=== PATIENT | male | born 1970 | race Caucasian/White ===

== ENCOUNTER → 2022-01-23 | Outpatient (CLI) | payer OTHER ==
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
== END | disposition home or self-care (01) ==
LOC: RADCTMAIN 14:47
PROVIDERS: ATTEND Nurse Practitioner Adult Health
DX: M54.12 Radiculopathy, cervical region (principal)
CPT/HCPCS: 72125

== ENCOUNTER 2022-09-02 15:14 | Emergency (ER) | payer OTHER ==
[2022-09-02 15:35] VITALS: BP 134/86; PULSE 103; RESP 20; TEMP 98.6
--- NOTE | 2022-09-02 16:36 | US ---
EXAMINATION TYPE: US venous doppler duplex LE RT DATE OF EXAM: 09/02/2022 4:07 PM COMPARISON: NONE CLINICAL HISTORY: 52-year-old male Pain. Red, hot leg, no h/o DVT SIDE PERFORMED: Right TECHNIQUE: The lower extremity deep venous system is examined utilizing real time linear array sonog gabi with graded compression, doppler sonography and color-flow sonography. FINDINGS: VESSELS IMAGED: Common Femoral Vein Deep Femoral Vein Greater Saphenous Vein * Femoral Vein Popliteal Vein Small Saphenous Vein * Proximal Calf Veins Posterior tibial veins (* superficial vessels) Right Leg: Negative for DVT IMPRESSION: No evidence for DVT within the right lower extremity.
[2022-09-02] MEDS ORDERED: HYDROmorphone 0.5 MG/0.5 ML SYRINGE IVP STA (17:32)
[2022-09-02] MEDS ORDERED: ONDANSETRON 4 MG/2 ML VIAL IVP STA (17:32)
[2022-09-02] MEDS ORDERED: SODIUM CHLORIDE 0.9% 2,000 ML IV STA (17:32)
[2022-09-02 17:50] LABS: Basophils % (A) 0 %; Eosinophils # (A) 0.1 k/uL (0-0.7); Eosinophils % (A) 0 %; HCT 37.3 % (39.0-53.0); HGB 13.7 gm/dL (13.0-17.5); Hyperchromasia Slight; Lymphocytes # (A) 1.5 k/uL (1.0-4.8); Lymphocytes % (A) 14 %; MCH 31.6 pg (25.0-35.0); MCHC 36.8 g/dL (31.0-37.0); MCV 85.9 fL (80.0-100.0); Mean Platelet Volume 8.1; Monocytes # (A) 0.7 k/uL (0-1.0); Monocytes % (A) 6 %; Neutrophils # (A) 8.7 k/uL (1.3-7.7); Neutrophils % (A) 77 %; Platelet Count 171 k/uL (150-450); Poikilocytosis Slight; RBC 4.34 m/uL (4.30-5.90); RDW 13.5 % (11.5-15.5); WBC 11.3 k/uL (3.8-10.6)
[2022-09-02 18:09] LABS: ALT 24 U/L (4-49); AST 24 U/L (17-59); African American GFR (CKD) >90 (>60 ml/min/1.73 sqM); Albumin 4.6 g/dL (3.5-5.0); Alkaline Phosphatase 83 U/L (38-126); Anion Gap 17 mmol/L; Blood Urea Nitrogen 18 mg/dL (9-20); Calcium 9.1 mg/dL (8.4-10.2); Carbon Dioxide 22 mmol/L (22-30); Chloride 94 mmol/L (98-107); Glucose 141 mg/dL (74-99); Non-African American GFR(CKD) >90 (>60 ml/min/1.73 sqM); Potassium 3.9 mmol/L (3.5-5.1); Sodium 133 mmol/L (137-145); Total Bilirubin 1.3 mg/dL (0.2-1.3); Total Protein 7.3 g/dL (6.3-8.2)
[2022-09-02] MEDS ORDERED: CLINDAMYCIN 150 MG CAP PO STA (19:12)
--- NOTE | 2022-09-02 19:12 | ED ---
Extremity Problem HPI - General Chief complaint: Extremity Problem,Nontraumatic Stated complaint: Sore on R leg-sent by PCP Time Seen by Provider: 09/02/22 16:13 Source: patient Mode of arrival: ambulatory Limitations: no limitations - History of Present Illness Initial comments: Patient is a 52-year-old male with a past medical history of diabetes mellitus who presents to the emergency department for evaluation of right lower extremity redness. Patient states symptoms started 2 days ago which included redness and swelling of his lower leg. States the redness is traveling up his lower leg and is causing pain. Patient was evaluated by his primary care provider who sent him to the emergency department for possible cellulitis versus DVT. Patient denies history of cellulitis and MRSA. Does not recall any bites or scratches on the leg. Denies history of DVT and PE. Denies tobacco hormone use. Denies recent airplane travel and long car travel. Patient given Motrin for pain with some relief. Denies fever, chills, upper respiratory symptoms. Does admit to nausea without vomiting. - Related Data Previous Rx's Medication Instructions Recorded Clindamycin [Cleocin] 450 mg PO Q8H #15 cap 09/02/22 Ketorolac [Toradol] 10 mg PO Q8HR PRN #15 tab 09/02/22 Ondansetron Odt [Zofran Odt] 4 mg PO Q8HR PRN #10 tab 09/02/22 Allergies Allergy/AdvReac Type Severity Reaction Status Date / Time Penicillins Allergy Rash/Hives Verified 09/02/22 15:35 Review of Systems ROS Statement: Those systems with pertinent positive or pertinent negative responses have been documented in the HPI. ROS Other: All systems not noted in ROS Statement are negative. Past Medical History Past Medical History: Diabetes Mellitus History of Any Multi-Drug Resistant Organisms: None Reported Past Surgical History: Joint Replacement, Orthopedic Surgery Additional Past Surgical History / Comment(s): Neck fusion Past Psychological History: No Psychological Hx Reported Smoking Status: Former smoker Past Alcohol Use History: Occasional Past Drug Use History: None Reported General Exam Limitations: no limitations General appearance: alert, in no apparent distress Head exam: Present: atraumatic, normocephalic, normal inspection Respiratory exam: Present: normal lung sounds bilaterally. Absent: respiratory distress, wheezes, rales, rhonchi, stridor Cardiovascular Exam: Present: regular rate, normal rhythm, normal heart sounds. Absent: systolic murmur, diastolic murmur, rubs, gallop, clicks GI/Abdominal exam: Present: soft, normal bowel sounds. Absent: distended, tenderness, guarding, rebound, rigid Extremities exam: Present: full ROM, normal capillary refill, other (Erythematous, swelling, warmth of right lower extremity starting at the distal lower leg just proximal to the ankle traveling upwards anteriorly to the proximal 1/3 of the lower leg). Absent: calf tenderness Neurological exam: Present: alert, oriented X3, CN II-XII intact Psychiatric exam: Present: normal affect, normal mood Skin exam: Present: warm, dry, intact, normal color. Absent: rash Course Vital Signs 09/02/22 15:31 Temperature 98.6 F Pulse Rate 103 H Respiratory 20 Rate Blood Pressure 134/86 O2 Sat by Pulse 99 Oximetry Medical Decision Making - Medical Decision Making This is a 52-year-old male presenting for evaluation of right lower leg redness. Physical exam reveals cellulitis of right lower extremity. Right lower extremity ultrasound with Doppler is negative for DVT. Laboratory studies obtained. There is mild leukocytosis of 11.3. Other laboratory studies are relatively unremarkable. Results discussed with patient. Patient afebrile, no tachycardia, no signs of systemic infection. He will be discharged with Keflex. First dose given in the emergency department. Return parameters discussed. He should follow up with primary care provider. Dr. Gordillo is my attending. - Lab Data Result diagrams: 09/02/22 17:34 09/02/22 17:34 Lab Results 09/02/22 09/02/22 09/02/22 Range/Units 17:34 17:34 17:34 WBC 11.3 H (3.8-10.6) k/uL RBC 4.34 (4.30-5.90) m/uL Hgb 13.7 (13.0-17.5) gm/dL Hct 37.3 L (39.0-53.0) % MCV 85.9 (80.0-100.0) fL MCH 31.6 (25.0-35.0) pg MCHC 36.8 (31.0-37.0) g/dL RDW 13.5 (11.5-15.5) % Plt Count 171 (150-450) k/uL MPV 8.1 Neutrophils % 77 % Lymphocytes % 14 % Monocytes % 6 % Eosinophils % 0 % Basophils % 0 % Neutrophils # 8.7 H (1.3-7.7) k/uL Lymphocytes # 1.5 (1.0-4.8) k/uL Monocytes # 0.7 (0-1.0) k/uL Eosinophils # 0.1 (0-0.7) k/uL Basophils # 0.0 (0-0.2) k/uL Hyperchromasia Slight Poikilocytosis Slight Sodium 133 L (137-145) mmol/L Potassium 3.9 (3.5-5.1) mmol/L Chloride 94 L (98-107) mmol/L Carbon Dioxide 22 (22-30) mmol/L Anion Gap 17 mmol/L BUN 18 (9-20) mg/dL Creatinine 0.76 (0.66-1.25) mg/dL Est GFR (CKD-EPI)AfAm >90 (>60 ml/min/1.73 sqM) Est GFR (CKD-EPI)NonAf >90 (>60 ml/min/1.73 sqM) Glucose 141 H (74-99) mg/dL Plasma Lactic Acid Lv 1.0 (0.7-2.0) mmol/L Calcium 9.1 (8.4-10.2) mg/dL Total Bilirubin 1.3 (0.2-1.3) mg/dL AST 24 (17-59) U/L ALT 24 (4-49) U/L Alkaline Phosphatase 83 (38-126) U/L Total Protein 7.3 (6.3-8.2) g/dL Albumin 4.6 (3.5-5.0) g/dL Coronavirus (PCR) (Not Detectd) Influenza Type A RNA (Not Detectd) Influenza Type B (PCR) (Not Detectd) 09/02/22 09/02/22 Range/Units 17:34 17:34 WBC (3.8-10.6) k/uL RBC (4.30-5.90) m/uL Hgb (13.0-17.5) gm/dL Hct (39.0-53.0) % MCV (80.0-100.0) fL MCH (25.0-35.0) pg MCHC (31.0-37.0) g/dL RDW (11.5-15.5) % Plt Count (150-450) k/uL MPV Neutrophils % % Lymphocytes % % Monocytes % % Eosinophils % % Basophils % % Neutrophils # (1.3-7.7) k/uL Lymphocytes # (1.0-4.8) k/uL Monocytes # (0-1.0) k/uL Eosinophils # (0-0.7) k/uL Basophils # (0-0.2) k/uL Hyperchromasia Poikilocytosis Sodium (137-145) mmol/L Potassium (3.5-5.1) mmol/L Chloride (98-107) mmol/L Carbon Dioxide (22-30) mmol/L Anion Gap mmol/L BUN (9-20) mg/dL Creatinine (0.66-1.25) mg/dL Est GFR (CKD-EPI)AfAm (>60 ml/min/1.73 sqM) Est GFR (CKD-EPI)NonAf (>60 ml/min/1.73 sqM) Glucose (74-99) mg/dL Plasma Lactic Acid Lv (0.7-2.0) mmol/L Calcium (8.4-10.2) mg/dL Total Bilirubin (0.2-1.3) mg/dL AST (17-59) U/L ALT (4-49) U/L Alkaline Phosphatase (38-126) U/L Total Protein (6.3-8.2) g/dL Albumin (3.5-5.0) g/dL Coronavirus (PCR) Not Detected (Not Detectd) Influenza Type A RNA Not Detected (Not Detectd) Influenza Type B (PCR) Not Detected (Not Detectd) Disposition Clinical Impression: Cellulitis of right lower extremity Disposition: HOME SELF-CARE Condition: Good Instructions (If sedation given, give patient instructions): Cellulitis (ED) Additional Instructions: Take medication as directed. Follow-up with primary care provider in one to 2 days. Return to the emergency department if you experience new, concerning, or worsening symptoms, including not limited to increased redness, swelling, or pain in the lower extremity. Prescriptions: Clindamycin [Cleocin] 450 mg PO Q8H #15 cap Ketorolac [Toradol] 10 mg PO Q8HR PRN #15 tab PRN Reason: Pain Ondansetron Odt [Zofran Odt] 4 mg PO Q8HR PRN #10 tab PRN Reason: Nausea Is patient prescribed a controlled substance at d/c from ED?: No Referrals: Dalton Tyler MD [Primary Care Provider] - 1-2 days Time of Disposition: 19:12
[2022-09-02] MEDS ORDERED: KETOROLAC 15 MG/ML 1 ML VIAL IVP STA (19:18)
== END 2022-09-02 21:20 | disposition home or self-care (01) ==
LOC: EC 15:14
DX: M79.606 Pain in leg, unspecified (principal); L03.115 Cellulitis of right lower limb; E11.9 Type 2 diabetes mellitus without complications; Z87.891 Personal history of nicotine dependence; Z88.0 Allergy status to penicillin; Z79.899 Other long term (current) drug therapy; Z20.822 Contact with and (suspected) exposure to COVID-19
CPT/HCPCS: 36415; 80053; 83605; 85025; 87502; 87635; 99284

== ENCOUNTER → 2022-11-19 | Outpatient (CLI) | payer OTHER ==
[2022-11-19 20:15] LABS: Basophils # (A) 0.04 X 10*3/uL (0.00-0.10); Basophils % (A) 0.5 %; Eosinophils # (A) 0.13 X 10*3/uL (0.04-0.35); Eosinophils % (A) 1.6 %; HCT 47.2 % (39.6-50.0); HGB 15.8 g/dL (13.0-17.0); Immature Grans, Automated 0.8 %; Lymphocytes # (A) 2.92 X 10*3/uL (0.90-5.00); Lymphocytes % (A) 35.2 %; MCH 29.4 pg (27.0-32.0); MCHC 33.5 g/dL (32.0-37.0); MCV 87.9 fL (80.0-97.0); Mean Platelet Volume 10.5 fL (9.5-12.2); Monocytes # (A) 0.64 X 10*3/uL (0.20-1.00); Monocytes % (A) 7.7 %; NRBC Per 100 WBC 0 /100 WBCS (0.0-0.0); Neutrophils % (A) 54.2 %; Platelet Count 240 X 10*3/uL (140-440); RBC 5.37 X 10*6/uL (4.40-5.60); RDW 13.8 % (11.5-14.5)
[2022-11-19 20:34] LABS: African American GFR (CKD) 113.4 (60.0-200.0); Albumin 4.7 g/dL (3.8-4.9); Albumin/Globulin Ratio 2.04 (1.60-3.17); Anion Gap 13.1 mmol/L (10.00-18.00); Blood Urea Nitrogen 21.6 mg/dL (9.0-27.0); Carbon Dioxide 19.9 mmol/L (20.0-27.5); Globulin 2.3 g/dL (1.6-3.3); Non-African American GFR(CKD) 97.9 (60.0-200.0); Potassium 3.8 mmol/L (3.5-5.5); Total Bilirubin 0.6 mg/dL (0.30-1.20)
== END | disposition home or self-care (01) ==
LOC: LABWHC1 13:54
PROVIDERS: ATTEND Family Medicine
DX: R19.7 Diarrhea, unspecified (principal)
CPT/HCPCS: 36415; 80053; 82150; 83690; 85025

== ENCOUNTER 2024-07-06 14:51 | Emergency (ER) | payer OTHER ==
[2024-07-06 14:58] VITALS: RESP 16
--- NOTE | 2024-07-06 15:34 | ED ---
Wound/Laceration HPI - General Chief Complaint: Wound/Laceration Stated Complaint: lac Time Seen by Provider: 07/06/24 15:33 Source: patient, EMS, RN notes reviewed Mode of arrival: EMS Limitations: no limitations - History of Present Illness Initial Comments: 53-year-old male presented to the ER via EMS with a chief complaint of a laceration. Patient accidentally fell onto a fertilizer blade cutting his left khan. Patient states bleeding is controlled at this time with compression. Tetanus status unknown. Patient denies any other injuries or complaints. - Related Data Previous Rx's Medication Instructions Recorded Clindamycin [Cleocin] 450 mg PO Q8H #15 cap 09/02/22 Ketorolac [Toradol] 10 mg PO Q8HR PRN #15 tab 09/02/22 Ondansetron Odt [Zofran Odt] 4 mg PO Q8HR PRN #10 tab 09/02/22 clindamycin HCL 300 mg PO QID #40 cap 09/03/22 clindamycin HCL 300 mg PO QID #40 cap 07/06/24 Allergies Allergy/AdvReac Type Severity Reaction Status Date / Time Penicillins Allergy Rash/Hives Verified 09/02/22 15:35 Review of Systems ROS Statement: Those systems with pertinent positive or pertinent negative responses have been documented in the HPI. ROS Other: All systems not noted in ROS Statement are negative. Past Medical History Past Medical History: Diabetes Mellitus History of Any Multi-Drug Resistant Organisms: None Reported Past Surgical History: Joint Replacement, Orthopedic Surgery Additional Past Surgical History / Comment(s): Neck fusion Past Psychological History: No Psychological Hx Reported Smoking Status: Former smoker Past Alcohol Use History: Occasional Past Drug Use History: None Reported General Exam Limitations: no limitations General appearance: alert, in no apparent distress Respiratory exam: Present: normal lung sounds bilaterally. Absent: respiratory distress, wheezes, rales, rhonchi, stridor Cardiovascular Exam: Present: regular rate, normal rhythm, normal heart sounds. Absent: systolic murmur, diastolic murmur, rubs, gallop, clicks Extremities exam: Present: normal inspection, full ROM, normal capillary refill, other (2+ left dorsalis pedis pulse. Patient has full active range of motion. Sensation intact. Bilateral lower extremity strength equal). Absent: tenderness, pedal edema, joint swelling, calf tenderness Neurological exam: Present: alert, oriented X3, CN II-XII intact Skin exam: Present: warm, dry, intact, normal color, other (6 cm flap laceration to left khan. No active bleeding.) Course Vital Signs 07/06/24 14:54 Temperature 98.3 F Pulse Rate 94 Respiratory 16 Rate Blood Pressure 160/101 O2 Sat by Pulse 98 Oximetry Procedures - Laceration Laceration #1 Consent Obtained: verbal consent Indication: laceration Site: lower extremity Size (cm): 6 Description: linear Depth: simple, single layer Anesthetic Used: lidocaine 1%, without epi Anesthesia Technique: local infiltration Amount (mls): 5 Pre-repair: wound explored, irrigated extensively, deep structures intact Type of Sutures: nylon Size of Sutures: 4-0 Number of Sutures: 7 Technique: simple, interrupted Patient Tolerated Procedure: well Medical Decision Making - Medical Decision Making Was pt. sent in by a medical professional or institution (Dr. PA, VIROLOGIST, urgent care, hospital, or [place] [facility] facility...) When possible be specific @ -No Did you speak to anyone other than the patient for history (EMS, parent, family, police, friend...)? What history was obtained from this source @ -No Did you review nursing and triage notes (agree or disagree)? Why? @ -I reviewed and agree with nursing and triage notes Were old charts reviewed (outside hosp., previous admission, EMS record, old EKG, old radiological studies, urgent care reports/EKG's, [place] [facility] facility records)? Report findings @ -No old charts were reviewed Differential Diagnosis (chest pain, altered mental status, abdominal pain women, abdominal pain men, vaginal bleeding, weakness, fever, dyspnea, syncope, headache, dizziness, GI bleed, back pain, seizure, CVA, palpatations, mental health, musculoskeletal)? @ -Laceration, abrasion, contusion, avulsion, foreign body this list is not meant to be all-inclusive EKG interpreted by me (3pts min.). @ -None X-rays interpreted by me (1pt min.). @ -Tibia/fibula x-ray interpreted by me negative for acute osseous process. There is a soft tissue abnormality to anterior aspect. CT interpreted by me (1pt min.). @ -None done U/S interpreted by me (1pt. min.). @ -None done What testing was considered but not performed or refused? (CT, X-rays, U/S, labs)? Why? @ -None What meds were considered but not given or refused? Why? @ -None Did you discuss the management of the patient with other professionals (professionals i.e. , PA, VIROLOGIST, lab, RT, psych nurse, social problems specialist, ad operations associate, teacher, life science technical officer, nurse case management)? Give summary @ -No Was smoking cessation discussed for >3mins.? @ -No Was critical care preformed (if so, how long)? @ -No Were there social determinants of health that impacted care today? How? (Homelessness, low income, unemployed, alcoholism, drug addiction, tr ansportation, low edu. Level, literacy, decrease access to med. care, fpc, rehab)? @ -No Was there de-escalation of care discussed even if they declined (Discuss DNR or withdrawal of care, Hospice)? DNR status @ -No What co-morbidities impacted this encounter? (DM, HTN, Smoking, COPD, CAD, Cancer, CVA, ARF, Chemo, Hep., AIDS, mental health diagnosis, sleep apnea, morbid obesity)? @ -Obese, diabetes Was patient admitted / discharged? Hospital course, mention meds given and route, prescriptions, significant lab abnormalities, going to OR and other pertinent info. @ -Discharge. 53-year-old male presented the ER with a chief complaint of laceration. History and physical exam completed. Vitals within normal limits. Patient in no signs of acute distress. Exam remarkable for a 6 cm flap laceration to anterior left khan. Minimal active bleeding. Deep structures intact. Left lower extremity neurovascular intact. Tetanus updated. X-rays obtained negative for acute osseous process. Wound closed, see note above. Patient started on clindamycin for infection prophylaxis. Suture care discussed. Advise removal in 10 to 14 days. Return parameters discussed. Patient discharged in stable condition with follow-up PCP. Patient verbally expressed understanding and agreed with care plan. Case discussed with ED attending, Dr. Gordillo. Undiagnosed new problem with uncertain prognosis? @ -No Drug Therapy requiring intensive monitoring for toxicity (Heparin, Nitro, Insulin, Cardizem)? @ -No Were any procedures done? @ -Yes laceration repair Diagnosis/symptom? @ -Laceration Acute, or Chronic, or Acute on Chronic? @ -Acute Uncomplicated (without systemic symptoms) or Complicated (systemic symptoms)? @ -Uncomplicated Side effects of treatment? @ -No Exacerbation, Progression, or Severe Exacerbation? @ -No Poses a threat to life or bodily function? How? (Chest pain, USA, MS, pneumonia, PE, COPD, DKA, ARF, appy, cholecystitis, CVA, Diverticulitis, Homicidal, Suicid al, threat to staff... and all critical care pts) @ -No - Radiology Data Radiology results: image reviewed Disposition Clinical Impression: Laceration Disposition: HOME SELF-CARE Condition: Stable Instructions (If sedation given, give patient instructions): Care For Your Stitches (DC) Additional Instructions: Have sutures removed in 10 to 14 days. Complete full course of antibiotics. Follow-up with PCP. Return to the ER for any new or worsening concerns. Prescriptions: clindamycin HCL 300 mg PO QID #40 cap Is patient prescribed a controlled substance at d/c from ED?: No Referrals: Jacqueline Maguire DO [Primary Care Provider] - 1-2 days Time of Disposition: 17:12
[2024-07-06] MEDS: ACETAMINOPHEN TAB 325 MG TAB PO STA (15:38)
[2024-07-06] MEDS: LIDOCAINE 1% INJ 10MG/ML (20 ML MDV) SQ ONE (15:39)
[2024-07-06] MEDS: DIPH,PERTUS(ACELL)TETVAC-LF 0.5 ML VIAL IM ONE (15:40)
[2024-07-06 17:31] VITALS: BP 145/72; PULSE 83; TEMP 98.4
--- NOTE | 2024-07-06 18:01 | XR ---
EXAMINATION TYPE: XR tibia fibula LT DATE OF EXAM: 07/06/2024 COMPARISON: None HISTORY: Laceration TECHNIQUE: 2 view left tibia and fibula FINDINGS: No acute osseous abnormality evident. A small secondary ossification center immediately lat eral to the medial malleolus. The ankle mortise is intact. The soft tissues appear normal. Patient's soft tissue laceration is evident along the distal anterior tibia. Tiny cortical injury may be presen t at this level, lateral projection distal diaphyseal anterior tibia. Plantar and Achilles tendon calcaneal heel spurs are present. IMPRESSION: 1. Tiny osseous chip from the anterior cortex distal diaphyseal tibia may be present at the level of the patient's laceration.
== END 2024-07-06 17:32 | disposition home or self-care (01) ==
LOC: EC 14:51
CPT/HCPCS: 12002; 90471; 90715; 99284